=== PATIENT | female | born 1995 | race Caucasian/White ===

== ENCOUNTER 2021-08-06 18:02 | Emergency (ER) | payer MEDICAID ==
[~2021-08-06] VITALS: Ht 157.5 cm; Wt 77.0 kg
[2021-08-06 18:19] VITALS: BP 144/79
== END 2021-08-06 22:00 | disposition home or self-care (01) ==
LOC: ER 18:02
DX: S40.012A Contusion of left shoulder, initial encounter (principal); R51.9 Headache, unspecified; M79.18 Myalgia, other site; V49.49XA Driver injured in collision with other motor vehicles in traffic accident, initial encounter; Y93.89 Activity, other specified; Y92.488 Other paved roadways as the place of occurrence of the external cause
CPT/HCPCS: 99282